=== PATIENT | male | born 1980 | race Caucasian/White ===

== ENCOUNTER → 2017-08-30 | Outpatient (CLI) | payer BC, OTHER ==
[2017-08-30 16:40] LABS: BASO # 0.1 10^3/uL (0.0-0.2); BASO % 0.5 % (0.0-1.0); EOS # 0.1 10^3/uL (0.0-0.50); HEMATOCRIT 46.4 % (42.0-52.0); HEMOGLOBIN 16.2 g/dl (14.0-18.0); IMMATURE GRANULOCYTE % 0.8 % (0-3.0); LYMPH # 1.2 10^3/uL (1.5-4.5); LYMPH % 12.6 % (24.0-44.0); MEAN CORPUSCULAR HEMOGLOBIN 29.7 pg (27.0-33.0); MEAN CORPUSCULAR HGB CONC 34.9 g/dl (32.0-36.5); MEAN CORPUSCULAR VOLUME 85.1 fl (80.0-96.0); MONO # 0.7 10^3/uL (0.0-0.8); MONO % 7.3 % (0.0-5.0); NEUTROPHILS # 7.6 10^3/uL (1.8-7.7); NEUTROPHILS % 77.8 % (36.0-66.0); PLATELET COUNT, AUTOMATED 254 10^3/uL (150-450); RED BLOOD COUNT 5.45 10^6/uL (4.30-6.10); RED CELL DISTRIBUTION WIDTH 12.3 % (11.5-14.5); WHITE BLOOD COUNT 9.8 10^3/uL (4.0-10.0)
[2017-08-30 17:39] LABS: ALBUMIN 4.3 GM/DL (3.2-5.2); ALBUMIN/GLOBULIN RATIO 1.26 (1.00-1.93); ALKALINE PHOSPHATASE 131 U/L (45-117); ALT/SGPT 53 U/L (12-78); ANION GAP 10 MEQ/L (8-16); AST/SGOT 22 U/L (7-37); BILIRUBIN,TOTAL 0.8 MG/DL (0.2-1.0); BLOOD UREA NITROGEN 13 MG/DL (7-18); CALCIUM LEVEL 9.3 MG/DL (8.5-10.1); CARBON DIOXIDE LEVEL 28 MEQ/L (21-32); CHLORIDE LEVEL 102 MEQ/L (98-107); CREATININE FOR GFR 0.92 MG/DL (0.70-1.30); FREE T4 1.21 NG/DL (0.76-1.46); GLOMERULAR FILTRATION RATE > 60.0 (>60); GLUCOSE, FASTING 81 MG/DL (70-100); POTASSIUM SERUM 4.1 MEQ/L (3.5-5.1); SODIUM LEVEL 140 MEQ/L (136-145); TOTAL PROTEIN 7.7 GM/DL (6.4-8.2)
== END ==
LOC: M WUC 13:24
DX: R05 Cough (principal)
CPT/HCPCS: 84443

== ENCOUNTER 2017-08-31 09:13 | Emergency (ER) | payer BC, OTHER | END 2017-08-31 13:00 | disposition home or self-care (01) | LOC: M ED 09:13 | DX: R91.8 Other nonspecific abnormal finding of lung field (principal); Z87.891 Personal history of nicotine dependence; Z98.890 Other specified postprocedural states; Z89.411 Acquired absence of right great toe; Z88.0 Allergy status to penicillin; Z88.8 Allergy status to other drugs, medicaments and biological substances | CPT/HCPCS: 71250 ==

== ENCOUNTER → 2017-09-06 | Outpatient (CLI) | payer BC, OTHER | LOC: M LRY 10:32 | DX: R91.8 Other nonspecific abnormal finding of lung field (principal) ==

== ENCOUNTER → 2017-09-07 | Outpatient (CLI) | payer OTHER ==
[2017-09-07 10:25] LABS: INR 0.93; PROTHROMBIN TIME 12.5 SECONDS (12.4-14.5)
[2017-09-07 10:26] LABS: PARTIAL THROMBOPLASTIN TIME 28.8 SECONDS (26.8-37.9)
== END ==
LOC: M LRY 08:02
DX: R91.8 Other nonspecific abnormal finding of lung field (principal)

== ENCOUNTER → 2017-09-21 | Outpatient (CLI) | payer BC, OTHER ==
[~2017-09-21] MED LIST: LIDOCAINE 1% MDV 20ML VIAL As Ordered
== END ==
LOC: M RADPRO 10:24
DX: R91.8 Other nonspecific abnormal finding of lung field (principal); D38.3 Neoplasm of uncertain behavior of mediastinum; Z88.1 Allergy status to other antibiotic agents; Z88.3 Allergy status to other anti-infective agents
CPT/HCPCS: 32405

== ENCOUNTER → 2017-09-22 | Outpatient (CLI) | payer OTHER ==
[2017-09-23 10:39] LABS: ALPHA FETOPROTEIN TUMOR QUANT 14.1 NG/ML (<8.1)
[2017-09-24 08:06] LABS: HCG SERUM TUMOR MARKER QUANT < 1 mIU/mL (0-3)
== END ==
LOC: M LRY 16:30
DX: R91.8 Other nonspecific abnormal finding of lung field (principal)

== ENCOUNTER → 2017-09-24 | Outpatient (REF) | payer OTHER ==
[2017-09-24 13:47] LABS: INR 0.98; PROTHROMBIN TIME 13.1 SECONDS (12.4-14.5)
[2017-09-24 13:48] LABS: PARTIAL THROMBOPLASTIN TIME 31.2 SECONDS (26.8-37.9)
== END ==
LOC: M LAB REF 12:56
DX: D38.3 Neoplasm of uncertain behavior of mediastinum (principal)

== ENCOUNTER → 2017-09-27 | Outpatient (CLI) | payer BC, OTHER ==
[~2017-09-27] MED LIST changes: +GASTROGRAFIN SOLUTION 30ML (Q9963) As Ordered; +ISOVUE-370 76% 100ML VIAL (Q9967) As Ordered; -LIDOCAINE 1% MDV 20ML VIAL As Ordered
== END ==
LOC: M RAD 15:59
DX: D38.3 Neoplasm of uncertain behavior of mediastinum (principal); K57.30 Diverticulosis of large intestine without perforation or abscess without bleeding; K76.0 Fatty (change of) liver, not elsewhere classified
CPT/HCPCS: Q9963

== ENCOUNTER → 2017-10-05 | Outpatient (CLI) | payer BC, OTHER | LOC: M CARPUL 12:57 | DX: C85.20 Mediastinal (thymic) large B-cell lymphoma, unspecified site (principal); R93.1 Abnormal findings on diagnostic imaging of heart and coronary circulation ==

== ENCOUNTER → 2017-10-05 | Outpatient (CLI) | payer BC, OTHER | LOC: M PLARAD 09:55 | DX: C62.90 Malignant neoplasm of unspecified testis, unspecified whether descended or undescended (principal) | CPT/HCPCS: 78815 ==

== ENCOUNTER → 2017-10-25 | Outpatient (CLI) | payer BC, OTHER ==
[2017-10-25 11:29] LABS: HEMATOCRIT 40.9 % (42.0-52.0); HEMOGLOBIN 14.2 g/dl (13.5-17.5); MEAN CORPUSCULAR HGB CONC 34.7 g/dl (32.0-36.5); MEAN CORPUSCULAR VOLUME 83.5 fl (80.0-96.0); PLATELET COUNT, AUTOMATED 161 10^3/uL (150-450)
[2017-10-25 12:10] LABS: ADD MANUAL DIFFER YES; DIFF SLIDE NUMBER 178; POS COUNT POS FLAG; POSITIVE DIFF POS FLAG; POSITIVE MORPH POS FLAG; WHITE BLOOD COUNT 1.7 10^3/uL (4.0-10.0)
[2017-10-25 12:50] LABS: ATYPICAL LYMPH 3 % (0-5); BANDS 3 % (< 11); BASOPHILS 1 % (0-4); EOSINOPHILS 6 % (0-5); LYMPHOCYTES 20 % (16-52); MONOCYTES 7 % (0-8); NEUTROPHILS 60 % (35-75); PLATELET ESTIMATE NORMAL (NORMAL)
== END ==
LOC: M LRY 09:29
DX: C85.20 Mediastinal (thymic) large B-cell lymphoma, unspecified site (principal)
CPT/HCPCS: 85025

== ENCOUNTER → 2017-10-28 | Outpatient (CLI) | payer BC, OTHER ==
[2017-10-28 11:41] LABS: HEMATOCRIT 41.7 % (42.0-52.0); HEMOGLOBIN 14.4 g/dl (13.5-17.5); MEAN CORPUSCULAR HEMOGLOBIN 29.2 pg (27.0-33.0); MEAN CORPUSCULAR HGB CONC 34.5 g/dl (32.0-36.5); MEAN CORPUSCULAR VOLUME 84.6 fl (80.0-96.0); PLATELET COUNT, AUTOMATED 130 10^3/uL (150-450); RED BLOOD COUNT 4.93 10^6/uL (4.30-6.10); RED CELL DISTRIBUTION WIDTH 12.2 % (11.5-14.5); WHITE BLOOD COUNT 27.2 10^3/uL (4.0-10.0)
[2017-10-28 11:55] LABS: ADD MANUAL DIFFER YES; DIFF SLIDE NUMBER 177; POS COUNT POS FLAG; POSITIVE DIFF POS FLAG; POSITIVE MORPH POS FLAG
[2017-10-28 12:29] LABS: ATYPICAL LYMPH 4 % (0-5); BANDS 6 % (< 11); BASOPHILS 1 % (0-4); EOSINOPHILS 6 % (0-5); LYMPHOCYTES 4 % (16-52); METAMYELOCYTES 12 % (0-0); MONOCYTES 8 % (0-8); MYELOCYTES 15 % (0-0); NEUTROPHILS 44 % (35-75); PLATELET ESTIMATE DECREASED (NORMAL)
== END ==
LOC: M LRY 09:36
DX: C85.20 Mediastinal (thymic) large B-cell lymphoma, unspecified site (principal)
CPT/HCPCS: 85025

== ENCOUNTER → 2017-11-01 | Outpatient (CLI) | payer BC, OTHER ==
[2017-11-01 11:40] LABS: HEMATOCRIT 41.7 % (42.0-52.0); MEAN CORPUSCULAR HEMOGLOBIN 29.5 pg (27.0-33.0); MEAN CORPUSCULAR HGB CONC 33.6 g/dl (32.0-36.5); MEAN CORPUSCULAR VOLUME 87.8 fl (80.0-96.0); PLATELET COUNT, AUTOMATED 140 10^3/uL (150-450); RED BLOOD COUNT 4.75 10^6/uL (4.30-6.10); WHITE BLOOD COUNT 24.7 10^3/uL (4.0-10.0)
[2017-11-01 12:14] LABS: ADD MANUAL DIFFER YES; DIFF SLIDE NUMBER 149; POS COUNT POS FLAG; POSITIVE DIFF POS FLAG; POSITIVE MORPH POS FLAG
[2017-11-01 13:28] LABS: BANDS 6 % (< 11); BASOPHILS 1 % (0-4); LYMPHOCYTES 10 % (16-52); METAMYELOCYTES 3 % (0-0); MONOCYTES 3 % (0-8); MYELOCYTES 3 % (0-0); NEUTROPHILS 74 % (35-75)
[2017-11-01 13:29] LABS: PLATELET ESTIMATE DECREASED (NORMAL); TOXIC GRANULATION 1+
[2017-11-01 13:30] LABS: ANISOCYTOSIS 1+; MICROCYTOSIS 1+
== END ==
LOC: M LRY 08:53
DX: C85.20 Mediastinal (thymic) large B-cell lymphoma, unspecified site (principal)
CPT/HCPCS: 85025

== ENCOUNTER → 2017-11-15 | Outpatient (CLI) | payer BC, OTHER ==
[2017-11-15 12:21] LABS: HEMATOCRIT 35.6 % (42.0-52.0); HEMOGLOBIN 12.4 g/dl (13.5-17.5); MEAN CORPUSCULAR HEMOGLOBIN 29.7 pg (27.0-33.0); MEAN CORPUSCULAR HGB CONC 34.8 g/dl (32.0-36.5); MEAN CORPUSCULAR VOLUME 85.2 fl (80.0-96.0); PLATELET COUNT, AUTOMATED 184 10^3/uL (150-450); RED BLOOD COUNT 4.18 10^6/uL (4.30-6.10); RED CELL DISTRIBUTION WIDTH 13.4 % (11.5-14.5); WHITE BLOOD COUNT 3.9 10^3/uL (4.0-10.0)
[2017-11-15 12:28] LABS: POSITIVE MORPH POS FLAG
[2017-11-15 12:29] LABS: ADD MANUAL DIFFER YES; DIFF SLIDE NUMBER 168; POS COUNT POS FLAG
[2017-11-15 13:18] LABS: BANDS 3 % (< 11); BASOPHILS 3 % (0-4); EOSINOPHILS 3 % (0-5); LYMPHOCYTES 7 % (16-52); MONOCYTES 2 % (0-8); MYELOCYTES 1 % (0-0); NEUTROPHILS 81 % (35-75); PLATELET ESTIMATE NORMAL (NORMAL); TOXIC GRANULATION 1+
[2017-11-15 13:19] LABS: ANISOCYTOSIS 1+; MICROCYTOSIS 1+
== END ==
LOC: M LRY 08:47
DX: C85.20 Mediastinal (thymic) large B-cell lymphoma, unspecified site (principal)
CPT/HCPCS: 85025

== ENCOUNTER → 2017-11-18 | Outpatient (CLI) | payer BC, OTHER ==
[2017-11-18 11:20] LABS: HEMATOCRIT 34.6 % (42.0-52.0); MEAN CORPUSCULAR HEMOGLOBIN 29.3 pg (27.0-33.0); MEAN CORPUSCULAR HGB CONC 34.7 g/dl (32.0-36.5); MEAN CORPUSCULAR VOLUME 84.4 fl (80.0-96.0); PLATELET COUNT, AUTOMATED 132 10^3/uL (150-450); RED CELL DISTRIBUTION WIDTH 13.2 % (11.5-14.5); WHITE BLOOD COUNT 26.5 10^3/uL (4.0-10.0)
[2017-11-18 11:35] LABS: ADD MANUAL DIFFER YES; DIFF SLIDE NUMBER 138; POS COUNT POS FLAG; POSITIVE DIFF POS FLAG; POSITIVE MORPH POS FLAG
[2017-11-18 11:45] LABS: BANDS 14 % (< 11); BASOPHILS 1 % (0-4); LYMPHOCYTES 14 % (16-52); METAMYELOCYTES 7 % (0-0); MONOCYTES 8 % (0-8); MYELOCYTES 10 % (0-0); NEUTROPHILS 46 % (35-75)
[2017-11-18 11:46] LABS: ANISOCYTOSIS 3+; PLATELET ESTIMATE NORMAL (NORMAL); POLYCHROMASIA 2+
== END ==
LOC: M LRY 08:26
DX: C83.32 Diffuse large B-cell lymphoma, intrathoracic lymph nodes (principal)
CPT/HCPCS: 85025

== ENCOUNTER → 2017-11-22 | Outpatient (CLI) | payer BC, OTHER ==
[2017-11-22 11:45] LABS: HEMATOCRIT 34.3 % (42.0-52.0); HEMOGLOBIN 11.9 g/dl (13.5-17.5); MEAN CORPUSCULAR HEMOGLOBIN 29.7 pg (27.0-33.0); MEAN CORPUSCULAR HGB CONC 34.7 g/dl (32.0-36.5); MEAN CORPUSCULAR VOLUME 85.5 fl (80.0-96.0); PLATELET COUNT, AUTOMATED 117 10^3/uL (150-450); RED BLOOD COUNT 4.01 10^6/uL (4.30-6.10); WHITE BLOOD COUNT 27.9 10^3/uL (4.0-10.0)
[2017-11-22 11:53] LABS: ADD MANUAL DIFFER YES; DIFF SLIDE NUMBER 208; POS COUNT POS FLAG; POSITIVE DIFF POS FLAG; POSITIVE MORPH POS FLAG
[2017-11-22 12:30] LABS: ATYPICAL LYMPH 2 % (0-5); BANDS 6 % (< 11); EOSINOPHILS 1 % (0-5); LYMPHOCYTES 9 % (16-52); METAMYELOCYTES 4 % (0-0); MONOCYTES 7 % (0-8); MYELOCYTES 3 % (0-0); NEUTROPHILS 68 % (35-75)
[2017-11-22 12:31] LABS: ANISOCYTOSIS 2+; PLATELET ESTIMATE DECREASED (NORMAL); POLYCHROMASIA 2+
== END ==
LOC: M LRY 09:24
DX: C83.32 Diffuse large B-cell lymphoma, intrathoracic lymph nodes (principal)
CPT/HCPCS: 85025

== ENCOUNTER → 2017-11-25 | Outpatient (CLI) | payer BC, OTHER ==
[2017-11-25 12:00] LABS: HEMATOCRIT 35.2 % (42.0-52.0); HEMOGLOBIN 12.2 g/dl (13.5-17.5); MEAN CORPUSCULAR HEMOGLOBIN 29.9 pg (27.0-33.0); MEAN CORPUSCULAR HGB CONC 34.7 g/dl (32.0-36.5); MEAN CORPUSCULAR VOLUME 86.3 fl (80.0-96.0); PLATELET COUNT, AUTOMATED 217 10^3/uL (150-450); RED BLOOD COUNT 4.08 10^6/uL (4.30-6.10); RED CELL DISTRIBUTION WIDTH 15.3 % (11.5-14.5); WHITE BLOOD COUNT 17.6 10^3/uL (4.0-10.0)
[2017-11-25 12:09] LABS: ADD MANUAL DIFFER YES; DIFF SLIDE NUMBER 169; POS COUNT POS FLAG; POSITIVE MORPH POS FLAG
[2017-11-25 12:32] LABS: ANISOCYTOSIS 1+; ATYPICAL LYMPH 2 % (0-5); BASOPHILS 1 % (0-4); EOSINOPHILS 2 % (0-5); LYMPHOCYTES 6 % (16-52); METAMYELOCYTES 1 % (0-0); MONOCYTES 5 % (0-8); MYELOCYTES 6 % (0-0); NEUTROPHILS 77 % (35-75); PLATELET ESTIMATE NORMAL (NORMAL)
[2017-11-25 12:33] LABS: POLYCHROMASIA 2+
== END ==
LOC: M LRY 08:39
DX: C85.20 Mediastinal (thymic) large B-cell lymphoma, unspecified site (principal)
CPT/HCPCS: 85025

== ENCOUNTER → 2017-12-06 | Outpatient (CLI) | payer BC, OTHER ==
[2017-12-06 17:28] LABS: HEMATOCRIT 27.1 % (42.0-52.0); HEMOGLOBIN 9.2 g/dl (13.5-17.5); MEAN CORPUSCULAR HEMOGLOBIN 29.7 pg (27.0-33.0); MEAN CORPUSCULAR HGB CONC 33.9 g/dl (32.0-36.5); MEAN CORPUSCULAR VOLUME 87.4 fl (80.0-96.0); PLATELET COUNT, AUTOMATED 131 10^3/uL (150-450); RED CELL DISTRIBUTION WIDTH 15.4 % (11.5-14.5)
[2017-12-06 17:29] LABS: ADD MANUAL DIFFER YES; DIFF SLIDE NUMBER 195; POS COUNT POS FLAG; POSITIVE DIFF POS FLAG; POSITIVE MORPH POS FLAG; WHITE BLOOD COUNT 1.3 10^3/uL (4.0-10.0)
[2017-12-06 20:24] LABS: BASOPHILS 4 % (0-4); EOSINOPHILS 2 % (0-5); LYMPHOCYTES 28 % (16-52); MONOCYTES 2 % (0-8); NEUTROPHILS 64 % (35-75); PLATELET ESTIMATE NORMAL (NORMAL)
== END ==
LOC: M LRY 11:39
DX: C83.32 Diffuse large B-cell lymphoma, intrathoracic lymph nodes (principal)

== ENCOUNTER → 2017-12-27 | Outpatient (CLI) | payer BC, OTHER ==
[2017-12-27 11:37] LABS: HEMATOCRIT 30.8 % (42.0-52.0); HEMOGLOBIN 10.4 g/dl (13.5-17.5); MEAN CORPUSCULAR HGB CONC 33.8 g/dl (32.0-36.5); MEAN CORPUSCULAR VOLUME 91.7 fl (80.0-96.0); PLATELET COUNT, AUTOMATED 111 10^3/uL (150-450); RED BLOOD COUNT 3.36 10^6/uL (4.30-6.10)
[2017-12-27 11:55] LABS: POSITIVE DIFF POS FLAG; WHITE BLOOD COUNT 1.2 10^3/uL (4.0-10.0)
[2017-12-27 11:56] LABS: ADD MANUAL DIFFER YES; DIFF SLIDE NUMBER 141; POS COUNT POS FLAG; POSITIVE MORPH POS FLAG
[2017-12-27 12:21] LABS: BANDS 8 % (< 11); BASOPHILS 2 % (0-4); EOSINOPHILS 4 % (0-5); LYMPHOCYTES 12 % (16-52); MONOCYTES 2 % (0-8); NEUTROPHILS 72 % (35-75)
[2017-12-27 12:22] LABS: ANISOCYTOSIS 2+; PLATELET ESTIMATE DECREASED (NORMAL); POIKILOCYTOSIS 1+
== END ==
LOC: M LRY 08:41
DX: C83.32 Diffuse large B-cell lymphoma, intrathoracic lymph nodes (principal)
CPT/HCPCS: 85025

== ENCOUNTER → 2017-12-30 | Outpatient (CLI) | payer BC, OTHER ==
[2017-12-30 11:39] LABS: HEMATOCRIT 23.8 % (42.0-52.0); MEAN CORPUSCULAR HEMOGLOBIN 30.5 pg (27.0-33.0); MEAN CORPUSCULAR HGB CONC 33.6 g/dl (32.0-36.5); MEAN CORPUSCULAR VOLUME 90.8 fl (80.0-96.0); RED BLOOD COUNT 2.62 10^6/uL (4.30-6.10); RED CELL DISTRIBUTION WIDTH 16.9 % (11.5-14.5); WHITE BLOOD COUNT 5.8 10^3/uL (4.0-10.0)
[2017-12-30 12:10] LABS: ADD MANUAL DIFFER YES; DIFF SLIDE NUMBER 186; PLATELET COUNT, AUTOMATED 63 10^3/uL (150-450); POS COUNT POS FLAG; POSITIVE MORPH POS FLAG
[2017-12-30 12:11] LABS: IMMATURE PLATELET FRACTION % 4.6 % (0.0-10.9)
[2017-12-30 12:16] LABS: ATYPICAL LYMPH 5 % (0-5); BANDS 7 % (< 11); BASOPHILS 1 % (0-4); BLAST CELLS 1 % (0-0); LYMPHOCYTES 24 % (16-52); METAMYELOCYTES 5 % (0-0); MONOCYTES 7 % (0-8); MYELOCYTES 10 % (0-0); NEUTROPHILS 39 % (35-75); PROMYELOCYTES 1 % (0-0)
[2017-12-30 12:20] LABS: PLATELET ESTIMATE DECREASED (NORMAL)
[2017-12-30 12:21] LABS: ANISOCYTOSIS 1+; MICROCYTOSIS 1+; POLYCHROMASIA 1+
== END ==
LOC: M LRY 10:04
DX: C83.32 Diffuse large B-cell lymphoma, intrathoracic lymph nodes (principal)
CPT/HCPCS: 85049

== ENCOUNTER → 2018-01-03 | Outpatient (CLI) | payer BC, OTHER ==
[2018-01-03 19:48] LABS: HEMOGLOBIN 8.6 g/dl (13.5-17.5); MEAN CORPUSCULAR HEMOGLOBIN 31.6 pg (27.0-33.0); MEAN CORPUSCULAR HGB CONC 31.9 g/dl (32.0-36.5); MEAN CORPUSCULAR VOLUME 99.3 fl (80.0-96.0); PLATELET COUNT, AUTOMATED 178 10^3/uL (150-450); RED BLOOD COUNT 2.72 10^6/uL (4.30-6.10); RED CELL DISTRIBUTION WIDTH 21.1 % (11.5-14.5); WHITE BLOOD COUNT 28.5 10^3/uL (4.0-10.0)
[2018-01-03 20:55] LABS: ADD MANUAL DIFFER YES; DIFF SLIDE NUMBER 179; POS COUNT POS FLAG; POSITIVE DIFF POS FLAG; POSITIVE MORPH POS FLAG
[2018-01-03 20:57] LABS: BANDS 4 % (< 11); LYMPHOCYTES 6 % (16-52); METAMYELOCYTES 5 % (0-0); MONOCYTES 6 % (0-8); MYELOCYTES 5 % (0-0); NEUTROPHILS 74 % (35-75)
[2018-01-03 20:58] LABS: ANISOCYTOSIS 2+; PLATELET ESTIMATE NORMAL (NORMAL); TEAR DROP CELLS 1+
[2018-01-03 21:00] LABS: POLYCHROMASIA 2+
== END ==
LOC: M LRY 10:34
DX: C83.32 Diffuse large B-cell lymphoma, intrathoracic lymph nodes (principal)
CPT/HCPCS: 85025

== ENCOUNTER → 2018-01-06 | Outpatient (CLI) | payer BC, OTHER ==
[2018-01-06 11:29] LABS: HEMATOCRIT 28.2 % (42.0-52.0); HEMOGLOBIN 9.4 g/dl (13.5-17.5); MEAN CORPUSCULAR HEMOGLOBIN 32.1 pg (27.0-33.0); MEAN CORPUSCULAR HGB CONC 33.3 g/dl (32.0-36.5); MEAN CORPUSCULAR VOLUME 96.2 fl (80.0-96.0); PLATELET COUNT, AUTOMATED 313 10^3/uL (150-450); RED BLOOD COUNT 2.93 10^6/uL (4.30-6.10); WHITE BLOOD COUNT 16.5 10^3/uL (4.0-10.0)
[2018-01-06 11:33] LABS: ADD MANUAL DIFFER YES; DIFF SLIDE NUMBER 177; POS COUNT POS FLAG; POSITIVE MORPH POS FLAG
[2018-01-06 12:27] LABS: BANDS 3 % (< 11); BASOPHILS 1 % (0-4); EOSINOPHILS 1 % (0-5); LYMPHOCYTES 8 % (16-52); METAMYELOCYTES 2 % (0-0); MONOCYTES 4 % (0-8); MYELOCYTES 4 % (0-0); NEUTROPHILS 77 % (35-75)
[2018-01-06 12:28] LABS: ANISOCYTOSIS 2+
[2018-01-06 12:29] LABS: PLATELET ESTIMATE NORMAL (NORMAL); POLYCHROMASIA 2+; TEAR DROP CELLS 1+
== END ==
LOC: M LRY 09:32
DX: C83.32 Diffuse large B-cell lymphoma, intrathoracic lymph nodes (principal)
CPT/HCPCS: 85025

== ENCOUNTER → 2018-01-06 | Outpatient (CLI) | payer BC, OTHER | LOC: M LRY 09:40 | DX: C85.20 Mediastinal (thymic) large B-cell lymphoma, unspecified site (principal) ==

== ENCOUNTER → 2018-01-17 | Outpatient (CLI) | payer BC, OTHER ==
[2018-01-17 17:36] LABS: HEMATOCRIT 24.7 % (42.0-52.0); HEMOGLOBIN 8.2 g/dl (13.5-17.5); MEAN CORPUSCULAR HEMOGLOBIN 32.2 pg (27.0-33.0); MEAN CORPUSCULAR HGB CONC 33.2 g/dl (32.0-36.5); MEAN CORPUSCULAR VOLUME 96.9 fl (80.0-96.0); PLATELET COUNT, AUTOMATED 104 10^3/uL (150-450); RED BLOOD COUNT 2.55 10^6/uL (4.30-6.10); RED CELL DISTRIBUTION WIDTH 17.3 % (11.5-14.5)
[2018-01-17 17:37] LABS: POS COUNT POS FLAG; POSITIVE DIFF POS FLAG; POSITIVE MORPH POS FLAG; WHITE BLOOD COUNT 1.1 10^3/uL (4.0-10.0)
[2018-01-17 17:39] LABS: ADD MANUAL DIFFER YES; DIFF SLIDE NUMBER 232
[2018-01-17 19:20] LABS: ANISOCYTOSIS 1+; BANDS 2 % (< 11); BASOPHILS 3 % (0-4); EOSINOPHILS 1 % (0-5); LYMPHOCYTES 13 % (16-52); MONOCYTES 1 % (0-8); NEUTROPHILS 80 % (35-75)
[2018-01-17 19:21] LABS: PLATELET ESTIMATE DECREASED (NORMAL)
== END ==
LOC: M LRY 10:34
DX: C83.32 Diffuse large B-cell lymphoma, intrathoracic lymph nodes (principal)
CPT/HCPCS: 85025

== ENCOUNTER 2018-01-19 16:51 | Inpatient (IN) | payer BC, OTHER ==
[2018-01-19] MEDS: NS 1,000 ML IV ×3 (17:45→23:33)
[2018-01-19] MEDS: ACETAMINOPHEN 325 MG TAB PO (17:45)
[2018-01-19 18:12] LABS: HEMATOCRIT 19.4 % (42.0-52.0); MEAN CORPUSCULAR HEMOGLOBIN 32.9 pg (27.0-33.0); MEAN CORPUSCULAR HGB CONC 35.1 g/dl (32.0-36.5); MEAN CORPUSCULAR VOLUME 93.7 fl (80.0-96.0); RED BLOOD COUNT 2.07 10^6/uL (4.30-6.10); RED CELL DISTRIBUTION WIDTH 15.4 % (11.5-14.5)
[2018-01-19 18:22] LABS: ADD MANUAL DIFFER YES; DIFF SLIDE NUMBER 341; HEMOGLOBIN 6.8 g/dl (13.5-17.5); POS COUNT POS FLAG; POSITIVE DIFF POS FLAG; POSITIVE MORPH POS FLAG; WHITE BLOOD COUNT 0.6 10^3/uL (4.0-10.0)
[2018-01-19 18:23] LABS: IMMATURE PLATELET FRACTION % 4.8 % (0.0-10.9); PLATELET COUNT, AUTOMATED 47 10^3/uL (150-450)
[2018-01-19 18:38] LABS: ALBUMIN 3.6 GM/DL (3.2-5.2); ALBUMIN/GLOBULIN RATIO 1.24 (1.00-1.93); ALKALINE PHOSPHATASE 110 U/L (45-117); ALT/SGPT 61 U/L (12-78); ANION GAP 8 MEQ/L (8-16); AST/SGOT 12 U/L (7-37); BILIRUBIN,DIRECT 0.2 MG/DL (0.0-0.2); BILIRUBIN,TOTAL 0.8 MG/DL (0.2-1.0); BLOOD UREA NITROGEN 12 MG/DL (7-18); CALCIUM LEVEL 8.7 MG/DL (8.5-10.1); CARBON DIOXIDE LEVEL 29 MEQ/L (21-32); CHLORIDE LEVEL 102 MEQ/L (98-107); CREATININE FOR GFR 0.94 MG/DL (0.70-1.30); GLOMERULAR FILTRATION RATE > 60.0 (>60); GLUCOSE, FASTING 95 MG/DL (70-100); POTASSIUM SERUM 4.2 MEQ/L (3.5-5.1); SODIUM LEVEL 139 MEQ/L (136-145); TOTAL PROTEIN 6.5 GM/DL (6.4-8.2)
[2018-01-19 18:53] LABS: ATYPICAL LYMPH 10 % (0-5); BANDS 6 % (< 11); BASOPHILS 8 % (0-4); EOSINOPHILS 4 % (0-5); LYMPHOCYTES 46 % (16-52); MONOCYTES 14 % (0-8); NEUTROPHILS 12 % (35-75); PLATELET ESTIMATE DECREASED (NORMAL)
[2018-01-19 18:55] LABS: TOXIC GRANULATION 1+
[2018-01-19] MEDS ORDERED: ONDANSETRON 4MG/2ML VIAL (J2405) IV (21:15)
[2018-01-19] MEDS ORDERED: NS 1,000 ML IV (21:15)
[2018-01-19] MEDS: NYSTATIN 500,000 U/5 ML SUSP UDC SS (21:45)
[2018-01-19 22:57] LABS: APPEARANCE, URINE CLEAR (CLEAR); BACTERIA, URINE AUTO NEGATIVE (NEGATIVE); BILIRUBIN, URINE AUTO NEGATIVE (NEGATIVE); BLOOD, URINE BLOOD NEGATIVE (NEGATIVE); CALCIUM OXALATE CRYSTALS SMALL; COLOR, URINE YELLOW (YELLOW); GLUCOSE, URINE (UA) AUTO NEGATIVE (NEGATIVE); KETONE, URINE AUTO NEGATIVE (NEGATIVE); LEUKOCYTE ESTERASE, URINE AUTO NEGATIVE (NEGATIVE); MUCUS, URINE SMALL (NEGATIVE); NITRITE, URINE AUTO NEGATIVE (NEGATIVE); PROTEIN, URINE AUTO NEGATIVE (NEGATIVE); RBC, URINE AUTO 0 /HPF (0-3); SQUAMOUS EPITHELIAL CELL UR AU 0 /HPF (0-6); UROBILINOGEN, URINE AUTO 0.2 mg/dL (0.0-2.0); WBC, URINE AUTO 1 /HPF (0-3)
[2018-01-19] MEDS: NORCO, ANEXSIA 5/325MG TABLET (HYDROcodone/ACETAMINOPHEN) PO (23:33)
[2018-01-19] MEDS: VANCOMYCIN HCL 1,000 MG, VIAL MATE ADAPTER 1 EACH in D5W 250 ML IV (23:33)
[2018-01-20] MEDS: VANCOMYCIN HCL 1,000 MG, VIAL MATE ADAPTER 1 EACH in D5W 250 ML IV ×4 (01:25→17:55)
[2018-01-20] MEDS: CEFEPIME HCL 2 GM in D5W MINI-BAG PLUS 50 ML IV ×2 (02:40→13:28)
[2018-01-20] MEDS: FLUCONAZOLE 400 MG in APPROPRIATE DILUENT 1 EA IV (04:34)
[2018-01-20 05:29] LABS: IMMEDIATE SPIN CROSSMATCH 1 2
[2018-01-20 09:14] LABS: HEMATOCRIT 23.6 % (42.0-52.0); HEMOGLOBIN 8.2 g/dl (13.5-17.5); MEAN CORPUSCULAR HEMOGLOBIN 31.5 pg (27.0-33.0); MEAN CORPUSCULAR HGB CONC 34.7 g/dl (32.0-36.5); MEAN CORPUSCULAR VOLUME 90.8 fl (80.0-96.0); RED CELL DISTRIBUTION WIDTH 15.8 % (11.5-14.5); WHITE BLOOD COUNT 3.9 10^3/uL (4.0-10.0)
[2018-01-20 09:16] LABS: PLATELET COUNT, AUTOMATED 40 10^3/uL (150-450); POS COUNT POS FLAG; POSITIVE MORPH POS FLAG
[2018-01-20 09:17] LABS: ADD MANUAL DIFFER YES; DIFF SLIDE NUMBER 84
[2018-01-20] MEDS: PANTOPRAZOLE 40MG TAB (PROTONIX) PO (09:28)
[2018-01-20] MEDS: ACETAMINOPHEN TAB 650MG DOSE (2X325MG) PO (09:28)
[2018-01-20] MEDS: NYSTATIN 500,000 U/5 ML SUSP UDC SS ×4 (09:28→20:45)
[2018-01-20 09:34] LABS: ANION GAP 9 MEQ/L (8-16); BLOOD UREA NITROGEN 6 MG/DL (7-18); CALCIUM LEVEL 8.5 MG/DL (8.5-10.1); CARBON DIOXIDE LEVEL 27 MEQ/L (21-32); CHLORIDE LEVEL 105 MEQ/L (98-107); GLOMERULAR FILTRATION RATE > 60.0 (>60); GLUCOSE, FASTING 99 MG/DL (70-100); SODIUM LEVEL 141 MEQ/L (136-145)
[2018-01-20 09:47] LABS: ATYPICAL LYMPH 5 % (0-5); BANDS 6 % (< 11); BASOPHILS 1 % (0-4); BLAST CELLS 1 % (0-0); LYMPHOCYTES 28 % (16-52); METAMYELOCYTES 5 % (0-0); MONOCYTES 6 % (0-8); MYELOCYTES 5 % (0-0); NEUTROPHILS 43 % (35-75)
[2018-01-20 09:48] LABS: ANISOCYTOSIS 1+; MICROCYTOSIS 1+; PLATELET ESTIMATE MARKED DECREASE (NORMAL); TOXIC GRANULATION 1+
[2018-01-20] MEDS: NS 1,000 ML IV ×4 (10:32→23:52)
[2018-01-20] MEDS: MAGIC MOUTHWASH SUSPENSION BTL SS ×2 (12:40→19:07)
[2018-01-20 13:57] LABS: HEMATOCRIT 23.6 % (42.0-52.0); HEMOGLOBIN 8.2 g/dl (13.5-17.5)
[2018-01-20 14:25] LABS: VANCOMYCIN LEVEL TROUGH 14.2 UG/ML (10.0-20.0)
[2018-01-20 18:44] LABS: IMMEDIATE SPIN CROSSMATCH 1 1
[2018-01-21] MEDS: VANCOMYCIN HCL 1,000 MG, VIAL MATE ADAPTER 1 EACH in D5W 250 ML IV ×3 (01:00→16:34)
[2018-01-21] MEDS: CEFEPIME HCL 2 GM in D5W MINI-BAG PLUS 50 ML IV ×2 (02:00→13:07)
[2018-01-21 05:58] LABS: HEMATOCRIT 26.3 % (42.0-52.0); HEMOGLOBIN 9.3 g/dl (13.5-17.5); MEAN CORPUSCULAR HEMOGLOBIN 31.6 pg (27.0-33.0); MEAN CORPUSCULAR HGB CONC 35.4 g/dl (32.0-36.5); MEAN CORPUSCULAR VOLUME 89.5 fl (80.0-96.0); RED BLOOD COUNT 2.94 10^6/uL (4.30-6.10); RED CELL DISTRIBUTION WIDTH 16.1 % (11.5-14.5); WHITE BLOOD COUNT 15.4 10^3/uL (4.0-10.0)
[2018-01-21 06:07] LABS: ADD MANUAL DIFFER YES; DIFF SLIDE NUMBER 64; PLATELET COUNT, AUTOMATED 53 10^3/uL (150-450); POS COUNT POS FLAG; POSITIVE DIFF POS FLAG; POSITIVE MORPH POS FLAG
[2018-01-21 06:09] LABS: IMMATURE PLATELET FRACTION % 5.4 % (0.0-10.9); PLATELET F 2.8
[2018-01-21] MEDS: NS 1,000 ML IV ×2 (06:32→13:12)
[2018-01-21 06:35] LABS: ATYPICAL LYMPH 2 % (0-5); BANDS 2 % (< 11); BASOPHILS 1 % (0-4); LYMPHOCYTES 8 % (16-52); METAMYELOCYTES 1 % (0-0); MONOCYTES 16 % (0-8); MYELOCYTES 9 % (0-0); NEUTROPHILS 61 % (35-75)
[2018-01-21 06:36] LABS: ANISOCYTOSIS 1+; PLATELET ESTIMATE MARKED DECREASE (NORMAL); POLYCHROMASIA 1+; TOXIC GRANULATION 1+
[2018-01-21 06:37] LABS: MICROCYTOSIS 1+; POIKILOCYTOSIS 1+
[2018-01-21 07:39] LABS: ALBUMIN 3.3 GM/DL (3.2-5.2); ANION GAP 6 MEQ/L (8-16); BLOOD UREA NITROGEN 5 MG/DL (7-18); CALCIUM LEVEL 8.3 MG/DL (8.5-10.1); CARBON DIOXIDE LEVEL 28 MEQ/L (21-32); CHLORIDE LEVEL 111 MEQ/L (98-107); CREATININE FOR GFR 0.81 MG/DL (0.70-1.30); GLOMERULAR FILTRATION RATE > 60.0 (>60); GLUCOSE, FASTING 112 MG/DL (70-100); PHOSPHORUS LEVEL 3.3 MG/DL (2.5-4.9); POTASSIUM SERUM 3.8 MEQ/L (3.5-5.1); SODIUM LEVEL 145 MEQ/L (136-145)
[2018-01-21] MEDS: valACYclovir HCL 500 MG TAB PO (09:00)
[2018-01-21] MEDS: FLUCONAZOLE 100 MG TAB PO (09:09)
[2018-01-21] MEDS: PANTOPRAZOLE 40MG TAB (PROTONIX) PO (09:09)
[2018-01-21] MEDS: NYSTATIN 500,000 U/5 ML SUSP UDC SS ×3 (09:09→16:34)
[2018-01-21] MEDS ORDERED: ISOVUE-370 76% 100ML VIAL (Q9967) As Ordered (09:25)
== END 2018-01-21 18:42 | disposition home or self-care (01) | DRG 660 ==
LOC: M ED 16:51 → M ED INP 21:25 → M PCU 22:47
PROC: 30233Q1 Transfusion of Nonautologous White Cells into Peripheral Vein, Percutaneous Approach (ICD-10-PCS; principal; 2018-01-19)
DX: D70.9 Neutropenia, unspecified (principal); C83.30 Diffuse large B-cell lymphoma, unspecified site; B00.2 Herpesviral gingivostomatitis and pharyngotonsillitis; D69.6 Thrombocytopenia, unspecified; D61.810 Antineoplastic chemotherapy induced pancytopenia; Z79.899 Other long term (current) drug therapy; Z88.0 Allergy status to penicillin; Z79.891 Long term (current) use of opiate analgesic; Z88.8 Allergy status to other drugs, medicaments and biological substances

== ENCOUNTER → 2018-01-24 | Outpatient (CLI) | payer BC, OTHER ==
[2018-01-24 18:01] LABS: HEMATOCRIT 31.5 % (42.0-52.0); HEMOGLOBIN 10.3 g/dl (13.5-17.5); MEAN CORPUSCULAR HEMOGLOBIN 31.4 pg (27.0-33.0); MEAN CORPUSCULAR HGB CONC 32.7 g/dl (32.0-36.5); PLATELET COUNT, AUTOMATED 133 10^3/uL (150-450); RED BLOOD COUNT 3.28 10^6/uL (4.30-6.10); RED CELL DISTRIBUTION WIDTH 17.2 % (11.5-14.5); WHITE BLOOD COUNT 19.9 10^3/uL (4.0-10.0)
[2018-01-24 18:26] LABS: ADD MANUAL DIFFER YES; DIFF SLIDE NUMBER 226; POS COUNT POS FLAG; POSITIVE MORPH POS FLAG
[2018-01-24 18:57] LABS: BANDS 11 % (< 11); BASOPHILS 2 % (0-4); LYMPHOCYTES 4 % (16-52); METAMYELOCYTES 7 % (0-0); MONOCYTES 3 % (0-8); MYELOCYTES 3 % (0-0); NEUTROPHILS 70 % (35-75)
[2018-01-24 18:58] LABS: POLYCHROMASIA 1+
[2018-01-24 18:59] LABS: ANISOCYTOSIS 1+; PLATELET ESTIMATE DECREASED (NORMAL)
== END ==
LOC: M LRY 10:40
DX: C83.32 Diffuse large B-cell lymphoma, intrathoracic lymph nodes (principal)
CPT/HCPCS: 85025

== ENCOUNTER → 2018-02-14 | Outpatient (CLI) | payer BC, OTHER ==
[2018-02-14 12:06] LABS: HEMATOCRIT 35.7 % (42.0-52.0); HEMOGLOBIN 11.8 g/dl (13.5-17.5); MEAN CORPUSCULAR HEMOGLOBIN 31.9 pg (27.0-33.0); MEAN CORPUSCULAR HGB CONC 33.1 g/dl (32.0-36.5); MEAN CORPUSCULAR VOLUME 96.5 fl (80.0-96.0); RED CELL DISTRIBUTION WIDTH 13.7 % (11.5-14.5)
[2018-02-14 12:47] LABS: ADD MANUAL DIFFER YES; DIFF SLIDE NUMBER 213; PLATELET COUNT, AUTOMATED 39 10^3/uL (150-450); POS COUNT POS FLAG; POSITIVE DIFF POS FLAG; POSITIVE MORPH POS FLAG; WHITE BLOOD COUNT 1.7 10^3/uL (4.0-10.0)
[2018-02-14 12:48] LABS: IMMATURE PLATELET FRACTION % 4.3 % (0.0-10.9); PLATELET F 1.7
[2018-02-14 12:58] LABS: ANISOCYTOSIS 1+; ATYPICAL LYMPH 1 % (0-5); BANDS 1 % (< 11); BASOPHILS 1 % (0-4); EOSINOPHILS 1 % (0-5); LYMPHOCYTES 11 % (16-52); METAMYELOCYTES 1 % (0-0); MONOCYTES 2 % (0-8); MYELOCYTES 3 % (0-0); NEUTROPHILS 79 % (35-75); PLATELET ESTIMATE MARKED DECREASE (NORMAL); POIKILOCYTOSIS 1+
== END ==
LOC: M LRY 10:16
DX: C83.32 Diffuse large B-cell lymphoma, intrathoracic lymph nodes (principal)
CPT/HCPCS: 85049

== ENCOUNTER → 2018-02-16 | Outpatient (CLI) | payer BC, OTHER ==
[2018-02-16 11:37] LABS: EOS % 5.9 % (0.0-3.0); HEMATOCRIT 31.9 % (42.0-52.0); HEMOGLOBIN 10.6 g/dl (13.5-17.5); LYMPH % 33.8 % (24.0-44.0); MEAN CORPUSCULAR HEMOGLOBIN 31.6 pg (27.0-33.0); MEAN CORPUSCULAR HGB CONC 33.2 g/dl (32.0-36.5); MEAN CORPUSCULAR VOLUME 95.2 fl (80.0-96.0); MONO # 0.2 10^3/uL (0.0-0.8); MONO % 27.9 % (0.0-5.0); NEUTROPHILS % 26.5 % (36.0-66.0); RED BLOOD COUNT 3.35 10^6/uL (4.30-6.10); RED CELL DISTRIBUTION WIDTH 13.2 % (11.5-14.5)
[2018-02-16 11:39] LABS: BASO % 5.9 % (0.0-1.0); LYMPH # 0.2 10^3/uL (1.5-4.5); NEUTROPHILS # 0.2 10^3/uL (1.8-7.7); POS COUNT POS FLAG; POSITIVE DIFF POS FLAG; POSITIVE MORPH POS FLAG
[2018-02-16 11:46] LABS: ALBUMIN 3.8 GM/DL (3.2-5.2); ALBUMIN/GLOBULIN RATIO 1.41 (1.00-1.93); ALKALINE PHOSPHATASE 110 U/L (45-117); ALT/SGPT 68 U/L (12-78); ANION GAP 9 MEQ/L (8-16); AST/SGOT 16 U/L (7-37); BILIRUBIN,TOTAL 0.8 MG/DL (0.2-1.0); BLOOD UREA NITROGEN 9 MG/DL (7-18); CALCIUM LEVEL 9.1 MG/DL (8.5-10.1); CARBON DIOXIDE LEVEL 30 MEQ/L (21-32); CHLORIDE LEVEL 102 MEQ/L (98-107); CREATININE FOR GFR 0.99 MG/DL (0.70-1.30); GLOMERULAR FILTRATION RATE > 60.0 (>60); GLUCOSE, FASTING 106 MG/DL (70-100); POTASSIUM SERUM 4.1 MEQ/L (3.5-5.1); SODIUM LEVEL 141 MEQ/L (136-145); TOTAL PROTEIN 6.5 GM/DL (6.4-8.2)
[2018-02-16 11:47] LABS: WHITE BLOOD COUNT 0.7 10^3/uL (4.0-10.0)
[2018-02-16 11:52] LABS: IMMATURE PLATELET FRACTION % 7.1 % (0.0-10.9)
== END ==
LOC: M LRY 09:05
DX: C85.90 Non-Hodgkin lymphoma, unspecified, unspecified site (principal)
CPT/HCPCS: 80053

== ENCOUNTER → 2018-02-21 | Outpatient (CLI) | payer BC, OTHER ==
[2018-02-21 13:05] LABS: HEMATOCRIT 34.8 % (42.0-52.0); HEMOGLOBIN 11.7 g/dl (13.5-17.5); MEAN CORPUSCULAR HEMOGLOBIN 33.1 pg (27.0-33.0); MEAN CORPUSCULAR HGB CONC 33.6 g/dl (32.0-36.5); MEAN CORPUSCULAR VOLUME 98.3 fl (80.0-96.0); PLATELET COUNT, AUTOMATED 181 10^3/uL (150-450); RED BLOOD COUNT 3.54 10^6/uL (4.30-6.10); RED CELL DISTRIBUTION WIDTH 14.1 % (11.5-14.5); WHITE BLOOD COUNT 13.7 10^3/uL (4.0-10.0)
[2018-02-21 13:14] LABS: ADD MANUAL DIFFER YES; DIFF SLIDE NUMBER 156; POS COUNT POS FLAG; POSITIVE MORPH POS FLAG
[2018-02-21 14:33] LABS: BANDS 2 % (< 11); LYMPHOCYTES 3 % (16-52); METAMYELOCYTES 2 % (0-0); MONOCYTES 6 % (0-8); MYELOCYTES 5 % (0-0); NEUTROPHILS 81 % (35-75); PROMYELOCYTES 1 % (0-0)
[2018-02-21 14:34] LABS: ANISOCYTOSIS 1+; POLYCHROMASIA 1+
[2018-02-21 14:35] LABS: PLATELET ESTIMATE NORMAL (NORMAL); POIKILOCYTOSIS 1+
== END ==
LOC: M LRY 08:32
DX: C83.32 Diffuse large B-cell lymphoma, intrathoracic lymph nodes (principal)

== ENCOUNTER → 2018-04-08 | Outpatient (CLI) | payer BC, OTHER | LOC: M CARPUL 08:31 | DX: Z51.81 Encounter for therapeutic drug level monitoring (principal); Z79.899 Other long term (current) drug therapy; C83.30 Diffuse large B-cell lymphoma, unspecified site | CPT/HCPCS: 93306 ==

== ENCOUNTER → 2021-01-14 | Outpatient (REF) | payer OTHER, BC ==
[~2021-01-14] MED LIST changes: +BACT400T PO; +FLUC10TA PO; -GASTROGRAFIN SOLUTION 30ML (Q9963) As Ordered; -ISOVUE-370 76% 100ML VIAL (Q9967) As Ordered; +LEVO500T4 PO; +MAGICMW SS; +NEUL0.6I SC; +NYST50SS SS; +OXYC-1 PO; +OXYC-517 PO; +PANT40TA29 PO; +PEG6SYR SC
== END ==
LOC: M SFHCLERA 19:05
PROVIDERS: ATTEND Nurse Practitioner Family
DX: S71.112A Laceration without foreign body, left thigh, initial encounter (principal); W18.30XA Fall on same level, unspecified, initial encounter; Y92.009 Unspecified place in unspecified non-institutional (private) residence as the place of occurrence of the external cause

== ENCOUNTER → 2025-03-26 | Outpatient (CLI) | payer BC ==
[~2025-03-26] MED LIST changes: +LEVO1TAB39 PO; -LEVO500T4 PO; +NYST-38 SS; -NYST50SS SS
== END ==
LOC: M WUC 14:09
PROVIDERS: ATTEND Registered Nurse
DX: M79.671 Pain in right foot (principal)